=== PATIENT | female | born 1990 | race African-American/Black ===

== ENCOUNTER 2016-12-02 05:13 | Emergency (ER) | payer OTHER ==
[2016-12-02] MEDS ORDERED: DIPH/PERTUSS(ACELL)/TETANUS VAC/PF 0.5 ML SYR (>=10YO) IM ONE (08:18)
[2016-12-02] MEDS ORDERED: OXYCODONE-ACETAMINOPHEN 5-325 MG TABLET PO ONE (08:20)
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
[2016-12-02 09:58] VITALS: BP 119/88
== END 2016-12-02 09:57 | disposition home or self-care (01) ==
LOC: ER 05:13
DX: S61.511A Laceration without foreign body of right wrist, initial encounter (principal); V48.5XXA Car driver injured in noncollision transport accident in traffic accident, initial encounter; M25.511 Pain in right shoulder; M25.531 Pain in right wrist
CPT/HCPCS: 90471; 90715; 99284

== ENCOUNTER 2017-03-15 10:42 | Emergency (ER) | payer BC, OTHER ==
[2017-03-15 10:47] VITALS: BP 126/85
[2017-03-15] MEDS ORDERED: HYDROCODONE/ACETAMINOPHEN 5-325 MG TABLET PO ONE (11:04)
--- NOTE | 2017-03-15 11:10 | ER Document Report ---
ED Medical Screen (RME) - General Chief Complaint: Vaginal Bleeding Stated Complaint: VAGINAL BLEEDING Time Seen by Provider: 03/15/17 11:04 Mode of Arrival: Ambulatory Information source: Patient TRAVEL OUTSIDE OF THE [place] IN LAST 30 DAYS: No - HPI Patient complains to provider of: Vaginal bleeding Onset: Yesterday Onset/Duration: Persistent Quality of pain: Achy, Cramping Severity: Moderate Pain Level: 2 Associated Symptoms: Vaginal bleeding Exacerbated by: Denies Relieved by: Denies Similar symptoms previously: No Recently seen / treated by doctor: No Notes: 03/15/17 11:09 Patient is a 26-year-old female who presents to the emergency room complaining of heavy vaginal bleeding with passage of clots yesterday, continuing today with cramping and bleeding, she denies being , her last menstrual period was January 21, she takes oral control but has not taken it for the past 2 days because she forgot, her last intercourse was approximately 1-1/2 months ago - Related Data Allergies/Adverse Reactions: No Known Allergies Allergy (Verified 03/15/17 10:45) Past Medical History - Social History Chew tobacco use (# tins/day): No Frequency of alcohol use: None Drug Abuse: None Neurological Medical History: Reports: Hx Migraine Renal/ Medical History: Denies: Hx Peritoneal Dialysis Musculoskeltal Medical History: Reports Hx Musculoskeletal Trauma Surgical Hx: Negative Physical Exam - Vital signs Vitals: Temp Pulse Resp BP Pulse Ox 98.2 F 87 16 126/85 H 97 03/15/17 10:45 03/15/17 10:45 03/15/17 10:45 03/15/17 10:45 03/15/17 10:45 Course - Vital Signs Vital signs: Temp Pulse Resp BP Pulse Ox 98.2 F 87 16 126/85 H 97 03/15/17 10:45 03/15/17 10:45 03/15/17 10:45 03/15/17 10:45 03/15/17 10:45
[2017-03-15 11:37] LABS: APPEARANCE,URINE SLIGHTLY-CLOUDY; BILIRUBIN,URINE NEGATIVE (NEGATIVE); GLUCOSE, URINE NEGATIVE (NEGATIVE); KETONES,URINE NEGATIVE (NEGATIVE); LEUKOCYTE ESTERASE,URINE TRACE (NEGATIVE); NITRITE,URINE NEGATIVE (NEGATIVE); PROTEIN,URINE NEGATIVE (NEGATIVE); URINE SPECIFIC GRAVITY 1.026; UROBILINOGEN,URINE NEGATIVE mg/dL (<2.0)
--- NOTE | 2017-03-15 11:44 | ER Document Report ---
ED GI/ - General Chief Complaint: Vaginal Bleeding Stated Complaint: VAGINAL BLEEDING Time Seen by Provider: 03/15/17 11:04 Mode of Arrival: Ambulatory Information source: Patient TRAVEL OUTSIDE OF THE [place] IN LAST 30 DAYS: No - HPI Patient complains to provider of: Vaginal bleeding Onset: Yesterday Timing/Duration: Persistent Quality of pain: Achy, Cramping Severity at maximum: Moderate Severity in ED: Moderate Pain Level: 3 Location: Pelvis Vaginal bleeding (Compared to normal period): Heavier, Passing clots Menstrual period history: Abnormal Associated symptoms: None Exacerbated by: Denies Relieved by: Denies Similar symptoms previously: Yes Recently seen / treated by doctor: No Notes: 03/15/17 11:43 Patient is a 26-year-old female who presents to the emergency room complaining of heavy vaginal bleeding 2 days with passage of clots yesterday, as well as pelvic cramping, she reports her last menstrual period was on January 22, 2016 but she has a history of abnormal menstrual periods and was started on oral control for this, she reports that she forgot to take her control over the past 2 days, her last intercourse was approximately 1-1/2 months ago, she denies being - Related Data Allergies/Adverse Reactions: No Known Allergies Allergy (Verified 03/15/17 10:45) Past Medical History - General Information source: Patient - Social History Smoking Status: Never Smoker Chew tobacco use (# tins/day): No Frequency of alcohol use: None Drug Abuse: None Family History: Arthritis, DM, Hyperlipidemia, Hypertension Patient has suicidal ideation: No Patient has homicidal ideation: No Neurological Medical History: Reports: Hx Migraine Renal/ Medical History: Denies: Hx Peritoneal Dialysis Musculoskeltal Medical History: Reports Hx Musculoskeletal Trauma Surgical Hx: Negative Review of Systems - Review of Systems Constitutional: No symptoms reported EENT: No symptoms reported Cardiovascular: No symptoms reported Respiratory: No symptoms reported Gastrointestinal: No symptoms reported Genitourinary: No symptoms reported Female Genitourinary: See HPI Musculoskeletal: No symptoms reported Skin: No symptoms reported Hematologic/Lymphatic: No symptoms reported Neurological/Psychological: No symptoms reported -: Yes All other systems reviewed and negative Physical Exam - Vital signs Vitals: Temp Pulse Resp BP Pulse Ox 98.2 F 87 16 126/85 H 97 03/15/17 10:45 03/15/17 10:45 03/15/17 10:45 03/15/17 10:45 03/15/17 10:45 Interpretation: Normal - General General appearance: Appears well, Alert - HEENT Head: Normocephalic, Atraumatic Eyes: Normal Pupils: PERRL - Respiratory Respiratory status: No respiratory distress Chest status: Nontender Breath sounds: Normal Chest palpation: Normal - Cardiovascular Rhythm: Regular Heart sounds: Normal auscultation Murmur: No - Abdominal Inspection: Normal Distension: No distension Bowel sounds: Normal Tenderness: Nontender Organomegaly: No organomegaly - Back Back: Normal, Nontender - Extremities General upper extremity: Normal inspection, Nontender, Normal color, Normal ROM , Normal temperature General lower extremity: Normal inspection, Nontender, Normal color, Normal ROM , Normal temperature, Normal weight bearing. No: Marisol's sign - Neurological Neuro grossly intact: Yes Cognition: Normal Orientation: AAOx4 [place] Coma Scale Eye Opening: Spontaneous [place] Coma Scale Verbal: Oriented [place] Coma Scale Motor: Obeys Commands [place] Coma Scale Total: 15 Speech: Normal Motor strength normal: LUE, RUE, LLE, RLE Sensory: Normal - Psychological Associated symptoms: Normal affect, Normal mood - Skin Skin Temperature: Warm Skin Moisture: Dry Skin Color: Normal Course - Re-evaluation Re-evalutation: 03/15/17 12:18 Findings were discussed with patient which are unremarkable, she was advised to take her oral control when she returns home, and was provided with pain medication, advised to follow-up with [facility] or return if symptoms worsen, patient acknowledges understanding and agreement with this plan 03/15/17 12:18 - Vital Signs Vital signs: Temp Pulse Resp BP Pulse Ox 98.2 F 87 16 126/85 H 97 03/15/17 10:45 03/15/17 10:45 03/15/17 10:45 03/15/17 10:45 03/15/17 10:45 - Laboratory Result Diagrams: 03/15/17 11:16 03/15/17 11:16 Laboratory results interpreted by me: 03/15/17 03/15/17 11:16 11:16 ALT 56 H Urine Blood LARGE H Ur Leukocyte Esterase TRACE H Urine Ascorbic Acid 20 H Discharge - Discharge Clinical Impression: Dysfunctional uterine bleeding Condition: Stable Disposition: HOME, SELF-CARE Instructions: Dysfunctional Uterine Bleeding ([facility]) Additional Instructions: Follow up with your primary care provider and [facility] in one to 2 days. Return to the emergency room immediately if symptoms worsen or any additional concerns. Forms: Return to Work
[2017-03-15 11:54] LABS: ABSOLUTE BASOPHILS # (AUTO) 0.1 10^3/uL (0.0-0.2); ABSOLUTE EOSINOPHILS # (AUTO) 0.2 10^3/uL (0.0-0.6); ABSOLUTE LYMPHOCYTES (AUTO) 2.2 10^3/uL (0.5-4.7); ABSOLUTE MONOCYTES (AUTO) 0.4 10^3/uL (0.1-1.4); ABSOLUTE NEUT (AUTO) 4.3 10^3/uL (1.7-8.2); BASOPHILS % (AUTO) 0.7 % (0-2); EOSINOPHILS % (AUTO) 2.7 % (0-6); HEMATOCRIT 39.8 % (36.0-47.0); HEMOGLOBIN 13.1 g/dL (12.0-15.5); HGB HCT DIFFERENCE -0.5; LYMPHOCYTES % (AUTO) 30.4 % (13-45); MEAN CORPUSCULAR HEMOGLOBIN 29.2 pg (27.0-33.4); MEAN CORPUSCULAR HGB CONC 32.9 g/dL (32.0-36.0); MEAN CORPUSCULAR VOLUME 89 fl (80-97); RED BLOOD COUNT 4.48 10^6/uL (3.72-5.28); RED CELL DISTRIBUTION WIDTH 13.7 % (11.5-14.0); SEGMENTED NEUTROPHILS % (AUTO) 60.2 % (42-78); WHITE BLOOD COUNT 7.2 10^3/uL (4.0-10.5)
[2017-03-15 12:06] LABS: ALANINE AMINOTRANSFERASE 56 U/L (9-52); ALBUMIN 3.8 g/dL (3.5-5.0); ALKALINE PHOSPHATASE 49 U/L (38-126); ANION GAP 12 (5-19); ASPARTATE AMINO TRANSFERASE 35 U/L (14-36); BILIRUBIN,DIRECT 0.2 mg/dL (0.0-0.4); BILIRUBIN,TOTAL 0.5 mg/dL (0.2-1.3); BLOOD UREA NITROGEN 9 mg/dL (7-20); CALCIUM 9.3 mg/dL (8.4-10.2); CARBON DIOXIDE 24 mmol/L (22-30); CHLORIDE 107 mmol/L (98-107); CREATININE RESULT 0.73 mg/dL (0.52-1.25); GLUCOSE 104 mg/dL (75-110); POTASSIUM 4.4 mmol/L (3.6-5.0); SODIUM 142.8 mmol/L (137-145); TOTAL PROTEIN 6.8 g/dL (6.3-8.2)
[2017-03-15] MEDS ORDERED: HYDROCODONE/ACETAMINOPHEN 5-325 MG 6 TAB/DSPK PO PRN (12:16)
== END 2017-03-15 12:20 | disposition home or self-care (01) ==
LOC: ER 10:42
DX: N93.8 Other specified abnormal uterine and vaginal bleeding (principal); R10.2 Pelvic and perineal pain; Z79.3 Long term (current) use of hormonal contraceptives
CPT/HCPCS: 36415; 80053; 81001; 84703; 85025; 87086; 87088; 87186; 99284

== ENCOUNTER 2017-04-12 09:50 | Emergency (ER) | payer BC ==
--- NOTE | 2017-04-12 11:37 | ER Document Report ---
ED Medical Screen (RME) - General Chief Complaint: Abdominal Pain Stated Complaint: ABDOMINAL PAIN Time Seen by Provider: 04/12/17 11:24 TRAVEL OUTSIDE OF THE [place] IN LAST 30 DAYS: No - HPI Patient complains to provider of: Abdominal pain Notes: 04/12/17 11:36 Lower abdominal pain states feels like she has been having rough sex - Related Data Allergies/Adverse Reactions: No Known Allergies Allergy (Verified 04/12/17 09:54) Past Medical History - Social History Chew tobacco use (# tins/day): No Frequency of alcohol use: None Drug Abuse: None Neurological Medical History: Reports: Hx Migraine Renal/ Medical History: Denies: Hx Peritoneal Dialysis Musculoskeltal Medical History: Reports Hx Musculoskeletal Trauma Surgical Hx: Negative - Immunizations Hx Diphtheria, Pertussis, Tetanus Vaccination: Yes Review of Systems - Review of Systems Gastrointestinal: Abdominal pain Physical Exam - Vital signs Vitals: Temp Pulse Resp BP Pulse Ox 98.4 F 91 16 133/91 H 100 04/12/17 09:54 04/12/17 09:54 04/12/17 09:54 04/12/17 09:54 04/12/17 09:54 - Respiratory Respiratory status: No respiratory distress Chest status: Nontender Breath sounds: Normal Chest palpation: Normal Course - Re-evaluation Re-evalutation: 04/12/17 11:37 I have greeted and performed a rapid initial assessment of this patient. A comprehensive ED assessment and evaluation of the patient, analysis of test results and completion of the medical decision making process will be conducted by additional ED providers. - Vital Signs Vital signs: Temp Pulse Resp BP Pulse Ox 98.4 F 91 16 133/91 H 100 04/12/17 09:54 04/12/17 09:54 04/12/17 09:54 04/12/17 09:54 04/12/17 09:54
[2017-04-12 12:11] LABS: ABSOLUTE BASOPHILS # (AUTO) 0.1 10^3/uL (0.0-0.2); ABSOLUTE EOSINOPHILS # (AUTO) 0.2 10^3/uL (0.0-0.6); ABSOLUTE LYMPHOCYTES (AUTO) 2.4 10^3/uL (0.5-4.7); ABSOLUTE MONOCYTES (AUTO) 0.7 10^3/uL (0.1-1.4); ABSOLUTE NEUT (AUTO) 6.1 10^3/uL (1.7-8.2); BASOPHILS % (AUTO) 0.8 % (0-2); EOSINOPHILS % (AUTO) 2.6 % (0-6); HEMATOCRIT 43.1 % (36.0-47.0); HEMOGLOBIN 13.6 g/dL (12.0-15.5); HGB HCT DIFFERENCE -2.3; LYMPHOCYTES % (AUTO) 25.2 % (13-45); MEAN CORPUSCULAR HEMOGLOBIN 28.7 pg (27.0-33.4); MEAN CORPUSCULAR HGB CONC 31.6 g/dL (32.0-36.0); MEAN CORPUSCULAR VOLUME 91 fl (80-97); MONOCYTES % (AUTO) 6.9 % (3-13); RED BLOOD COUNT 4.76 10^6/uL (3.72-5.28); RED CELL DISTRIBUTION WIDTH 13.5 % (11.5-14.0); SEGMENTED NEUTROPHILS % (AUTO) 64.5 % (42-78); WHITE BLOOD COUNT 9.5 10^3/uL (4.0-10.5)
[2017-04-12 12:14] LABS: APPEARANCE,URINE SLIGHTLY-CLOUDY; BILIRUBIN,URINE NEGATIVE (NEGATIVE); GLUCOSE, URINE NEGATIVE (NEGATIVE); KETONES,URINE NEGATIVE (NEGATIVE); LEUKOCYTE ESTERASE,URINE TRACE (NEGATIVE); NITRITE,URINE NEGATIVE (NEGATIVE); PROTEIN,URINE NEGATIVE (NEGATIVE); URINE SPECIFIC GRAVITY 1.024; UROBILINOGEN,URINE NEGATIVE mg/dL (<2.0)
[2017-04-12 12:25] LABS: BACTERIA,URINE TRACE /HPF
[2017-04-12 12:28] LABS: ALANINE AMINOTRANSFERASE 85 U/L (9-52); ALBUMIN 4.2 g/dL (3.5-5.0); ALKALINE PHOSPHATASE 61 U/L (38-126); ANION GAP 10 (5-19); ASPARTATE AMINO TRANSFERASE 48 U/L (14-36); BILIRUBIN,DIRECT 0.2 mg/dL (0.0-0.4); BILIRUBIN,TOTAL 0.4 mg/dL (0.2-1.3); BLOOD UREA NITROGEN 9 mg/dL (7-20); CALCIUM 9.3 mg/dL (8.4-10.2); CARBON DIOXIDE 24 mmol/L (22-30); CHLORIDE 105 mmol/L (98-107); CREATININE RESULT 0.63 mg/dL (0.52-1.25); GLUCOSE 88 mg/dL (75-110); LIPASE 126.8 U/L (23-300); POTASSIUM 4.4 mmol/L (3.6-5.0); TOTAL PROTEIN 7.8 g/dL (6.3-8.2)
--- NOTE | 2017-04-12 13:47 | ER Document Report ---
ED GI/ - General Chief Complaint: Abdominal Pain Stated Complaint: ABDOMINAL PAIN Time Seen by Provider: 04/12/17 11:24 Mode of Arrival: Ambulatory Information source: Patient TRAVEL OUTSIDE OF THE [place] IN LAST 30 DAYS: No - HPI Patient complains to provider of: Abdominal pain Onset: Other - 2-3 DAYS Timing/Duration: Gradual Quality of pain: Achy, Cramping, Dull Severity at maximum: Moderate Severity in ED: Almost gone Context: denies: Bad food, Lifting, Out of the country travel, Location: LLQ, RLQ, Suprapubic Vaginal bleeding (Compared to normal period): None Menstrual period history: Irregular Sexual history: Active Associated symptoms: None. denies: Chills, Dysuria, Fever, Nausea, Vomiting Exacerbated by: Denies Relieved by: Denies Similar symptoms previously: Yes - UNSURE OF CAUSE Recently seen / treated by doctor: No - Related Data Allergies/Adverse Reactions: No Known Allergies Allergy (Verified 04/12/17 09:54) Past Medical History - General Information source: Patient - Social History Smoking Status: Never Smoker Chew tobacco use (# tins/day): No Frequency of alcohol use: None Drug Abuse: None Lives with: Parents Family History: Arthritis, DM, Hyperlipidemia, Hypertension Patient has suicidal ideation: No Patient has homicidal ideation: No - Past Medical History Cardiac Medical History: Reports: None Pulmonary Medical History: Reports: None Neurological Medical History: Reports: Hx Migraine Endocrine Medical History: Reports: None Renal/ Medical History: Reports: None. Denies: Hx Peritoneal Dialysis Malignancy Medical History: Reports: None GI Medical History: Reports: None Musculoskeltal Medical History: Reports Hx Musculoskeletal Trauma Psychiatric Medical History: Reports: None Surgical Hx: Negative - Immunizations Hx Diphtheria, Pertussis, Tetanus Vaccination: Yes Review of Systems - Review of Systems Constitutional: No symptoms reported. denies: Chills, Fever EENT: No symptoms reported Cardiovascular: No symptoms reported Respiratory: No symptoms reported Gastrointestinal: See HPI Genitourinary: See HPI Female Genitourinary: See HPI Musculoskeletal: No symptoms reported Skin: No symptoms reported Neurological/Psychological: No symptoms reported Physical Exam - Vital signs Vitals: Temp Pulse Resp BP Pulse Ox 98.4 F 91 16 133/91 H 100 04/12/17 09:54 04/12/17 09:54 04/12/17 09:54 04/12/17 09:54 04/12/17 09:54 Interpretation: Hypertensive - General General appearance: Appears well, Alert In distress: None - HEENT Head: Normocephalic Eyes: Normal Conjunctiva: Normal Ears: Normal Nasal: Normal Mouth/Lips: Normal Mucous membranes: Normal Pharynx: Normal Neck: Normal - Respiratory Respiratory status: No respiratory distress Breath sounds: Normal - Cardiovascular Rhythm: Regular Heart sounds: Normal auscultation Murmur: No - Abdominal Inspection: Normal Bowel sounds: Normal Tenderness: Tender - SLIGHT, LLQ=RLQ=SP - Genitourinary External exam: Normal Speculum exam: Normal Vaginal bleeding: None Bimanuel exam: Cervical motion tender - MILD - Extremities General upper extremity: Normal inspection General lower extremity: Normal inspection - Neurological Neuro grossly intact: Yes Cognition: Normal Orientation: AAOx4 - Psychological Associated symptoms: Normal affect, Normal mood - Skin Skin Temperature: Warm Skin Moisture: Dry Skin Color: Normal Skin Turgor: Elastic Course - Re-evaluation Re-evalutation: 04/12/17 16:04 Results of evaluation and laboratory studies discussed with patient. Treatment discussed. - Vital Signs Vital signs: Temp Pulse Resp BP Pulse Ox 98.4 F 91 16 133/91 H 100 04/12/17 09:54 04/12/17 09:54 04/12/17 09:54 04/12/17 09:54 04/12/17 09:54 - Laboratory Result Diagrams: 04/12/17 11:45 04/12/17 11:45 Laboratory results interpreted by me: 04/12/17 04/12/17 04/12/17 11:40 11:45 11:45 MCHC 31.6 L AST 48 H ALT 85 H Ur Leukocyte Esterase TRACE H Urine Ascorbic Acid 40 H Discharge - Discharge Clinical Impression: Pelvic pain, Cervicitis Condition: Stable Disposition: HOME, SELF-CARE Instructions: Pelvic Pain ([facility]) Additional Instructions: REST, DRINK PLENTY OF FLUIDS. YOU MAY TAKE TYLENOL FOR PAIN CONTROL IF NEEDED. FOLLOW UP WITH YOUR PRIMARY CARE PROVIDER IF NOT IMPROVING IN 24-48 HOURS. RETURN TO E. R. IF YOU GET WORSE, ANY TIME. Referrals: SILVA DOUGLAS MD [Primary Care Provider] - Follow up as needed
[2017-04-12] MEDS ORDERED: LIDOCAINE 1% INJ-PF (10 MG/ML) 30 ML SDV INFIL ONE (15:46)
[2017-04-12] MEDS ORDERED: CEFTRIAXONE INJ 250 MG VIAL IM ONE (15:46)
[2017-04-12] MEDS ORDERED: AZITHROMYCIN 250 MG TABLET PO ONE (15:48)
[2017-04-12 16:27] LABS: CHLAM PCR NOT DETECTED (NOT DETECT)
[2017-04-12 16:28] VITALS: BP 114/71
== END 2017-04-12 16:10 | disposition home or self-care (01) ==
LOC: ER 09:50
DX: N72 Inflammatory disease of cervix uteri (principal); R10.2 Pelvic and perineal pain; R10.9 Unspecified abdominal pain
CPT/HCPCS: 99284; 96372; 36415; 87210; 84702; 83690; 85025; 80053; 81001; 87491; 87591; J3490; J0696

== ENCOUNTER 2018-10-14 19:15 | Emergency (ER) | payer BC, MEDICAID ==
[2018-10-14] MEDS ORDERED: ACETAMINOPHEN 325 MG TABLET PO ONE (22:13)
--- NOTE | 2018-10-14 22:19 | ER Document Report ---
ED Headache - General Chief Complaint: Headache Stated Complaint: HEADACHE Time Seen by Provider: 10/14/18 20:55 TRAVEL OUTSIDE OF THE [place] IN LAST 30 DAYS: No - HPI Patient complains to provider of: "Migraine" Patient reports: Frequent migraines Onset: This morning Onset was: Gradual Timing: Better Quality of pain: Pressure Severity: Mild Associated symptoms: None Similar symptoms previously: No Recently seen / treated by doctor: No Notes: Patient is a 28-year-old female at 6 weeks gestation by early ultrasound that presents to the emergency department for chief complaint of headache. Patient reports history of migraine headaches. Today she stated she started having a headache in her bilateral forehead and face. She described it as a pr essure and throbbing sensation. The headache has significantly improved and she states is almost completely gone. She states she felt like she could feel her heart beating in her face. She denied any chest pain or difficulty breathing. She states that she did not have any photophobia or phonophobia. This headache was similar to previous headaches she has had in the past. She did not take any medication at home for the pain. Patient denies any problems with this . She has seen [facility] and had a confirmed single intrauterine gestation by ultrasound. 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 She denies any vaginal bleeding, lower abdominal pain or cramping. Past Medical History: Negative Past Surgical History: Negative Social History: Denies drugs alcohol and tobacco Family History: Reviewed and noncontributory for presenting illness Allergies: Reviewed, see documented allergy list. REVIEW OF SYSTEMS: CONSTITUTIONAL : No fever No chills No diaphoresis No recent illness EENT: No vision changes No congestion No sore throat CARDIOVASCULAR: No chest pain No palpitations RESPIRATORY: No shortness of breath No cough No difficulty breathing GASTROINTESTINAL: No abdominal pain No nausea No vomiting No diarrhea GENITOURINARY: No dysuria No hematuria No difficulty urinating MUSCULOSKELETAL: No back pain No leg pain No arm pain SKIN: No rashes No lesions LYMPHATIC: No swollen, enlarged glands. NEUROLOGICAL: No lightheadedness headache No weakness No paresthesias PSYCHIATRIC: No anxiety No depression PHYSICAL EXAMINATION: Vital signs reviewed, nursing noted reviewed. GENERAL: Well-appearing, well-nourished and in no acute distress. HEAD: Atraumatic, normocephalic. EYES: Eyes appear normal, extraocular movements intact, sclera anicteric, conjunctiva are normal. ENT: nares patent, oropharynx clear without exudates. Moist mucous membranes. NECK: Normal range of motion, supple without lymphadenopathy LUNGS: Breath sounds clear to auscultation bilaterally and equal. No wheezes rales or rhonchi. HEART: Regular rate and rhythm without murmurs ABDOMEN: Soft, nontender, normoactive bowel sounds. No rebound, guarding, or rigidity. No masses appreciated. EXTREMITIES: Nontender, good range of motion, no pitting or edema. NEUROLOGICAL: No focal neurological deficits. Moves all extremities spontaneously Motor and sensory grossly intact on exam. PSYCH: Normal mood, normal affect. SKIN: Warm, Dry, normal turgor, no rashes or lesions noted on exposed skin - Related Data Allergies/Adverse Reactions: No Known Allergies Allergy (Verified 10/14/18 19:23) Past Medical History - Social History Smoking Status: Never Smoker Chew tobacco use (# tins/day): No Frequency of alcohol use: None Drug Abuse: None Family History: Arthritis, DM, Hyperlipidemia, Hypertension Patient has suicidal ideation: No Patient has homicidal ideation: No - Past Medical History Cardiac Medical History: Reports: Hx Hypertension Neurological Medical History: Reports: Hx Migraine Renal/ Medical History: Denies: Hx Peritoneal Dialysis Musculoskeletal Medical History: Reports Hx Musculoskeletal Trauma - Immunizations Hx Diphtheria, Pertussis, Tetanus Vaccination: Yes Course - Re-evaluation Re-evalutation: 10/14/18 22:17 Vitals reviewed. Nursing notes reviewed. Patient is well-appearing and in no acute distress. When she is describing the palpitations it is more of a throbbing in her face then in her chest. I do not suspect dysrhythmia. Patient states her headache feels similar to previous migraines and is almost completely resolved. I do not feel imaging of her head is currently indicated and I do not suspect intracranial hemorrhage. Patient was given a Tylenol for further symptom medic management. I did area counselor her that her migraines may become more frequent with . I encouraged her to increase her oral hydration. She will take Tylenol at home as needed for headaches. She will also begin taking vitamins. She will follow with [facility] on Friday as already scheduled Discharge - Discharge Clinical Impression: Cephalgia Qualifiers: Headache type: unspecified Headache chronicity pattern: acute headache Intractability: not intractable Qualified Code(s): R51 - Headache Condition: Stable Disposition: HOME, SELF-CARE Instructions: Headache ([facility]) Additional Instructions: Please return to the emergency department if you have any worsening, or concern of your symptoms. Please return to the emergency department if you develop chest pain, difficulty breathing, severe abdominal pain, or ongoing vomiting. Please follow-up with your primary care physician in 2-3 days and any other recommended physicians. If prescribed, take all medications as directed. If you have any questions or concerns do not hesitate to return the emergency department for evaluation.
[2018-10-14 22:58] VITALS: BP 116/71
== END 2018-10-14 22:58 | disposition home or self-care (01) ==
LOC: ER 19:15
DX: O26.891 Other specified pregnancy related conditions, first trimester (principal); R51 Headache; O16.1 Unspecified maternal hypertension, first trimester; Z3A.01 Less than 8 weeks gestation of pregnancy
CPT/HCPCS: 99283; J3490

== ENCOUNTER 2019-05-03 11:41 | Outpatient (CLI) | payer MEDICAID ==
[2019-05-03 12:38] LABS: BACTERIA (WET MOUNT) 4+ BACTERIA SEEN; EPITHELIALS (WET MOUNT) 3+ EPITHELIALS SEEN; RBCS (WET MOUNT) NO RBCS SEEN; T.VAGINALIS (WET MOUNT) NO TRICHOMONAS SEEN; WBCS (WET MOUNT) 4+ WBCS SEEN; YEAST (WET MOUNT) NO YEAST SEEN
== END 2019-05-03 13:20 | disposition home or self-care (01) ==
LOC: LC 11:41
PROVIDERS: ATTEND Obstetrics & Gynecology
PROC: 4A1HXCZ Monitoring of Products of Conception, Cardiac Rate, External Approach (ICD-10-PCS; principal; 2019-05-03)
DX: O24.410 Gestational diabetes mellitus in pregnancy, diet controlled (principal); Z3A.35 35 weeks gestation of pregnancy
CPT/HCPCS: 59025; 84112; 87210